=== PATIENT | female | born 1995 | race Two or more races ===

== ENCOUNTER 2021-02-18 04:50 | Emergency (ER) | payer SELFPAY ==
--- NOTE | 2021-02-18 04:58 | EDM.PDOC ---
<Edi Roman - Last Filed: 02/18/21 07:11> ED HPI GENERAL MEDICAL PROBLEM - General Stated Complaint: FEVER, CHILLS, VOMITING Time Seen by Provider: 02/18/21 04:53 - Related Data Allergies Allergy/AdvReac Type Severity Reaction Status Date / Time Penicillins Allergy Anaphylactic Verified 02/18/21 05:26 Shock Home Meds: Home Meds Ondansetron [Zofran ODT] 4 mg PO Q6H PRN #10 tab.dis 02/18/21 [Rx] Departure - Departure Time of Disposition: 07:11 Disposition: Home, Self-Care 01 Condition: Good Clinical Impression: COVID-19, Nausea and vomiting - Discharge Information Prescriptions: Ondansetron [Zofran ODT] 4 mg PO Q6H PRN #10 tab.dis PRN Reason: Nausea/Vomiting Instructions: COVID-19 Frequently Asked Questions, COVID-19 Vaccine Information, 10 Things You Can Do to Manage Your COVID-19 Symptoms at Home - [facility] (12/24/2019), COVID-19: Quarantine vs. Isolation - [facility] (06/10/2020), COVID-19: What to Do if You Are Sick - [facility] (06/24/2020) Referrals: PCP,None [Primary Care Provider] - Forms: ED Department Discharge Additional Instructions: [facility] - Primary Care [address] [place] [id number] [place] [address] The following information is given to patients seen in the emergency department who are being discharged to home. This information is to outline your options for follow-up care. We provide all patients seen in our emergency department with a follow-up referral. The need for follow-up, as well as the timing and circumstances, are variable depending upon the specifics of your emergency department visit. If you don't have a primary care physician on staff, we will provide you with a referral. We always advise you to contact your personal physician following an emergency department visit to inform them of the circumstance of the visit and for follow-up with them and/or the need for any referrals to a consulting specialist. The emergency department will also refer you to a specialist when appropriate. This referral assures that you have the opportunity for follow-up care with a specialist. All of these measure are taken in an effort to provide you with optimal care, which includes your follow-up. Under all circumstances we always encourage you to contact your private physician who remains a resource for coordinating your care. When calling for follow-up care, please make the office aware that this follow-up is from your recent emergency room visit. If for any reason you are refused follow-up, please contact the [facility] Emergency Department at and asked to speak to the emergency department charge nurse. <Denzel Aguilar - Last Filed: 02/18/21 18:47> ED HPI GENERAL MEDICAL PROBLEM - History of Present Illness INITIAL COMMENTS - FREE TEXT/NARRATIVE: History of present illness: [] The patient says she has body aches severe headache burning in her chest cough shortness of breath and fever. She is vomiting everything that she tries to take. Her cousins admitted here with COVID-19. She did a home test that showed positive. She is a non-smoker and not diabetic. She does not have asthma or lung disease. At age 25 she does not have any risk for severe COVID-19 disease but of course no one can be sure that they want succumbed to severe illness or with this disease. She is quite concerned about that. Review of systems: As per history of present illness and below otherwise all systems reviewed and negative. Past medical history: As per history of present illness and as reviewed below otherwise noncontributory. Surgical history: As per history of present illness and as reviewed below otherwise nonco ntributory. Social history: No reported history of drug or alcohol abuse. Family history: As per history of present illness and as reviewed below otherwise noncontributory. Physical exam: Constitutional - well developed, well-nourished and in no acute distress HEENT - normocephalic, no evidence of trauma - external nose and mouth normal - no mass in neck and no JVD - mucosae moist EYES - full EOM, PERRL, no icterus - no evidence of inflammation, injection, or drainage Respiratory - no respiratory distress, equal bilateral expansion, lungs clear to auscultation and no abnormal lung sounds Cardiovascular - Regular Rhythm with S1 and S2 appreciated and no murmur, gallop or rub. GI - abdomen soft without distension or organomegaly - normal bowel sounds - no guard or rebound Musculoskeletal no gross deformity of long bones or joints - no tenderness, swelling or edema Neurologic - Alert and oriented times four - CN II-XII grossly intact - motor sensory and coordination symmetrically normal Psychiatric - appropriate mood and affect with normal thought content Hematologic - No petechiae or purpura - mucosa appropriate color and sclera not pale - normal nail bed color and refill Integument - no rash or evidence of trauma - normal turgor Diagnostics: [] Therapeutics: [] Impression: [] Plan: [] Definitive disposition and diagnosis as appropriate pending reevaluation and review of above. back, generalized Pain Score (Numeric/FACES): 9 ED ROS GENERAL - Review of Systems Review Of Systems: Comprehensive ROS is negative, except as noted in HPI. ED EXAM, GENERAL - Physical Exam Exam: See Below Free Text/Narrative:: My physical exam is in the HPI Course - Vital Signs Last Recorded V/S: Last Vital Signs Temp 36.1 C 02/18/21 07:24 Pulse 96 02/18/21 07:24 Resp 22 H 02/18/21 07:24 BP 116/72 02/18/21 07:24 Pulse Ox 97 02/18/21 07:24 - Orders/Labs/Meds Orders: Active Orders 24 hr Category Date Time Status Saline Lock Insert [OM.PC] Stat Oth 02/18/21 05:47 Ordered Labs: Laboratory Tests 02/18/21 02/18/21 02/18/21 Range/Units 06:00 06:00 06:00 WBC 5.37 (4.0-11.0) K/uL RBC 4.90 (4.30-5.90) M/uL Hgb 11.3 L (12.0-16.0) g/dL Hct 35.9 L (36.0-46.0) % MCV 73.3 L (80.0-98.0) fL MCH 23.1 L (27.0-32.0) pg MCHC 31.5 (31.0-37.0) g/dL RDW Std Deviation 43.6 (28.0-62.0) fl RDW Coeff of Lam 16 H (11.0-15.0) % Plt Count 248 (150-400) K/uL MPV 10.40 (7.40-12.00) fL Neut % (Auto) 79.3 (48.0-80.0) % Lymph % (Auto) 14.2 L (16.0-40.0) % [place] % (Auto) 6.3 (0.0-15.0) % Eos % (Auto) 0.0 (0.0-7.0) % Baso % (Auto) 0.2 (0.0-1.5) % Neut # (Auto) 4.3 (1.4-5.7) K/uL Lymph # (Auto) 0.8 (0.6-2.4) K/uL [place] # (Auto) 0.3 (0.0-0.8) K/uL Eos # (Auto) 0.0 (0.0-0.7) K/uL Baso # (Auto) 0.0 (0.0-0.1) K/uL Nucleated RBC % 0.0 /100WBC Nucleated RBCs # 0 K/uL Sodium 138 (136-145) mmol/L Potassium 3.7 (3.5-5.1) mmol/L Chloride 102 (98-107) mmol/L Carbon Dioxide 25.8 (21.0-32.0) mmol/L BUN 8 (7.0-18.0) mg/dL Creatinine 0.8 (0.6-1.0) mg/dL Est Cr Clr Drug Dosing 114.23 mL/min Estimated GFR (MDRD) > 60.0 ml/min Glucose 102 (74-106) mg/dL Calcium 8.0 L (8.5-10.1) mg/dL Total Bilirubin 0.3 (0.2-1.0) mg/dL AST 19 (15-37) IU/L ALT 32 (14-63) IU/L Alkaline Phosphatase 111 (46-116) U/L Total Protein 6.6 (6.4-8.2) g/dL Albumin 3.4 (3.4-5.0) g/dL Globulin 3.2 (2.6-4.0) g/dL Albumin/Globulin Ratio 1.1 (0.9-1.6) SARS-CoV-2 RNA (MILAGRO) POSITIVE H (NEGATIVE) Meds: Medications Discontinued Medications Generic Name Dose Route Start Last Admin Trade Name Freq PRN Reason Stop Dose Admin Sodium Chloride 1,000 mls @ 100 mls/hr 02/18/21 05:45 02/18/21 05:52 Normal Saline IV 100 mls/hr ASDIRECTED ROSIBEL Administration Ketorolac Tromethamine 30 mg 02/18/21 05:45 02/18/21 05:54 Ketorolac 30 Mg/Ml Sdv IM 02/18/21 05:46 Not Given ONETIME ONE Ketorolac Tromethamine 15 mg 02/18/21 05:47 02/18/21 05:52 Ketorolac 15 Mg/Ml Sdv IVPUSH 02/18/21 05:48 15 mg ONETIME ONE Administration Ondansetron HCl 4 mg 02/18/21 05:43 02/18/21 05:54 Ondansetron 4 Mg/2 Ml Sdv IVPUSH 02/18/21 05:44 Not Given ONETIME ONE Ondansetron HCl 4 mg 02/18/21 05:45 02/18/21 05:54 Ondansetron 4 Mg Tab.Dis PO 02/18/21 05:46 Not Given ONETIME ONE Ondansetron HCl 4 mg 02/18/21 05:48 02/18/21 05:53 Ondansetron 4 Mg/2 Ml Sdv IVPUSH 02/18/21 05:49 4 mg ONETIME ONE Administration Sodium Chloride 10 ml 02/18/21 05:43 Sodium Chloride 0.9% 10 Ml Syringe FLUSH ASDIRECTED PRN Keep Vein Open Sodium Chloride 2.5 ml 02/18/21 05:43 Sodium Chloride 0.9% 2.5 Ml Syringe FLUSH ASDIRECTED PRN Keep Vein Open Sodium Chloride 10 ml 02/18/21 05:47 02/18/21 05:53 Sodium Chloride 0.9% 10 Ml Syringe FLUSH 10 ml ASDIRECTED PRN Administration Keep Vein Open Sodium Chloride 2.5 ml 02/18/21 05:47 02/18/21 05:53 Sodium Chloride 0.9% 2.5 Ml Syringe FLUSH 2.5 ml ASDIRECTED PRN Administration Keep Vein Open Departure - Departure Condition: Good Sepsis Event Note (ED) - Focused Exam Vital Signs: Vital Signs Temp Pulse Resp BP Pulse Ox 02/18/21 07:24 36.1 C 96 22 H 116/72 97 02/18/21 06:58 80 18 109/56 L 96 - My Orders Last 24 Hours: My Active Orders 02/18/21 05:47 Saline Lock Insert [OM.PC] Stat - Assessment/Plan Last 24 Hours: My Active Orders 02/18/21 05:47 Saline Lock Insert [OM.PC] Stat
[2021-02-18] MEDS ORDERED: Sodium Chloride 0.9% 10 ML Syringe FLUSH PRN ×2 (05:43→05:47)
[2021-02-18] MEDS ORDERED: Ondansetron 4 MG/2 ML SDV IVPUSH ONE ×2 (05:43→05:48)
[2021-02-18] MEDS ORDERED: Sodium Chloride 0.9% 2.5 ML Syringe FLUSH PRN ×2 (05:43→05:47)
[2021-02-18] MEDS ORDERED: Sodium Chloride 0.9% 1,000 ML IV SCH (05:45)
[2021-02-18] MEDS ORDERED: Ketorolac 30 MG/ML SDV IM ONE (05:45)
[2021-02-18] MEDS ORDERED: Ondansetron 4 MG Tab.DIS PO ONE (05:45)
[2021-02-18] MEDS ORDERED: Ketorolac 15 MG/ML SDV IVPUSH ONE (05:47)
[2021-02-18 06:40] LABS: BLOOD UREA NITROGEN,BUN 8 mg/dL (7.0-18.0); CARBON DIOXIDE,CO2 25.8 mmol/L (21.0-32.0); CHLORIDE,CL 102 mmol/L (98-107); GLUCOSE RANDOM 102 mg/dL (74-106); POTASSIUM,K 3.7 mmol/L (3.5-5.1); SODIUM,NA 138 mmol/L (136-145)
== END 2021-02-18 07:25 | disposition home or self-care (01) ==
LOC: MW.ED 04:50
DX: U07.1 COVID-19 (principal); Z88.0 Allergy status to penicillin
CPT/HCPCS: 36415; 80053; 85025; 87635; 96374; 96375; 99284; J1885; J2405; J7030; U0002

== ENCOUNTER 2021-02-20 23:32 | Emergency (ER) | payer SELFPAY ==
[2021-02-21] MEDS ORDERED: Metoclopramide 10 MG/2 ML SDV IVPUSH ONE (00:04)
[2021-02-21] MEDS ORDERED: Sodium Chloride 0.9% 1,000 ML IV ONE (00:04)
--- NOTE | 2021-02-21 00:08 | EDM.PDOC ---
ED HPI GENERAL MEDICAL PROBLEM - General Chief Complaint: Gastrointestinal Problem Stated Complaint: COVID COMPLICATIONS, NAUSEA, VOMITTING Time Seen by Provider: 02/20/21 23:34 Source of Information: Reports: Patient History Limitations: Reports: No Limitations - History of Present Illness INITIAL COMMENTS - FREE TEXT/NARRATIVE: Patient is a 25-year-old female who presents today for worsening Covid symptoms. Patient was seen here 2 days ago and was diagnosed ago at that time. Oxygen was well and she was sent home. She went to [place] yesterday night around 7 PM and had an extensive work-up with CT chest abdomen pelvis T and L- spine's multiple labs that were all within normal limits. She was sent home however she still was not feeling well and her mother is currently ICU her mother instructed her to come to the hospital because they felt that there may be something wrong with a nurse. Based off the work-up that they did there there was very extensive they did not find any concerning findings. Patient vital signs are stable here her oxygen level is 98% on room air. But she still complains that she just feels very tired and weak. She was explained that she has Covid and the symptoms could be related to them. Abdomen Pain Score (Numeric/FACES): 6 - Related Data Allergies Allergy/AdvReac Type Severity Reaction Status Date / Time Penicillins Allergy Anaphylactic Verified 02/20/21 23:52 Shock Home Meds: Home Meds Ondansetron [Zofran ODT] 4 mg PO Q6H PRN #10 tab.dis 02/18/21 [Rx] Past Medical History - Past Health History Medical/Surgical History: Denies Medical/Surgical History HEENT History: Reports: None Cardiovascular History: Reports: None Respiratory History: Reports: None Gastrointestinal History: Reports: None Genitourinary History: Reports: None TEST ENGINE OPERATOR History: Reports: None Musculoskeletal History: Reports: None Neurological History: Reports: None Psychiatric History: Reports: None Endocrine/Metabolic History: Reports: None Hematologic History: Reports: None Immunologic History: Reports: None Oncologic (Cancer) History: Reports: None Dermatologic History: Reports: None - Infectious Disease History Infectious Disease History: Reports: None - Past Surgical History Head Surgeries/Procedures: Reports: None Social & Family History - Family History Family Medical History: No Pertinent Family History - Tobacco Use Tobacco Use Status *Q: Never Tobacco User Second Hand Smoke Exposure: No - Caffeine Use Caffeine Use: Reports: None - Recreational Drug Use Recreational Drug Use: No ED ROS GENERAL - Review of Systems Review Of Systems: See Below Constitutional: Reports: Fever, Chills, Malaise HEENT: Reports: No Symptoms Respiratory: Reports: Cough Cardiovascular: Reports: No Symptoms Endocrine: Reports: No Symptoms GI/Abdominal: Reports: No Symptoms : Reports: No Symptoms Musculoskeletal: Reports: No Symptoms Skin: Reports: No Symptoms Neurological: Reports: No Symptoms Psychiatric: Reports: No Symptoms Hematologic/Lymphatic: Reports: No Symptoms Immunologic: Reports: No Symptoms ED EXAM, GENERAL - Physical Exam Exam: See Below Exam Limited By: No Limitations General Appearance: Alert, WD/WN, No Apparent Distress Eye Exam: Bilateral Eye: EOMI, PERRL Head: Atraumatic, Normocephalic Neck: Normal Inspection Respiratory/Chest: No Respiratory Distress, Lungs Clear, Normal Breath Sounds Cardiovascular: Normal Peripheral Pulses, Regular Rate, Rhythm GI/Abdominal: Normal Bowel Sounds, Soft, Non-Tender Extremities: Normal Inspection, Normal Range of Motion Neurological: Alert, Oriented, CN II-XII Intact, Normal Cognition, Normal Gait Course - Vital Signs Last Recorded V/S: Last Vital Signs Temp 97.7 F 02/20/21 23:42 Pulse 86 02/20/21 23:42 Resp 18 02/20/21 23:42 BP 127/73 02/20/21 23:42 Pulse Ox 97 02/20/21 23:42 - Orders/Labs/Meds Orders: Active Orders 24 hr Category Date Time Status Sodium Chloride 0.9% [Normal Saline] 1,000 ml Med 02/21/21 00:04 Active IV .Bolus Medication Orders Sodium Chloride (Normal Saline) 1,000 mls @ 1,000 mls/hr IV .Bolus ONE Stop: 02/21/21 01:03 Last Admin: 02/21/21 00:15 Dose: 1,000 mls/hr Documented by: COREY Labs: Laboratory Tests 02/20/21 02/20/21 02/21/21 Range/Units 23:55 23:55 00:04 WBC 6.08 (4.0-11.0) K/uL RBC 5.20 (4.30-5.90) M/uL Hgb 11.8 L (12.0-16.0) g/dL Hct 37.6 (36.0-46.0) % MCV 72.3 L (80.0-98.0) fL MCH 22.7 L (27.0-32.0) pg MCHC 31.4 (31.0-37.0) g/dL RDW Std Deviation 42.1 (28.0-62.0) fl RDW Coeff of Lam 16 H (11.0-15.0) % Plt Count 270 (150-400) K/uL MPV 10.30 (7.40-12.00) fL Neut % (Auto) 88.2 H (48.0-80.0) % Lymph % (Auto) 8.6 L (16.0-40.0) % [place] % (Auto) 3.0 (0.0-15.0) % Eos % (Auto) 0.0 (0.0-7.0) % Baso % (Auto) 0.2 (0.0-1.5) % Neut # (Auto) 5.4 (1.4-5.7) K/uL Lymph # (Auto) 0.5 L (0.6-2.4) K/uL [place] # (Auto) 0.2 (0.0-0.8) K/uL Eos # (Auto) 0.0 (0.0-0.7) K/uL Baso # (Auto) 0.0 (0.0-0.1) K/uL Nucleated RBC % 0.0 /100WBC Nucleated RBCs # 0 K/uL Sodium 138 (136-145) mmol/L Potassium 4.4 (3.5-5.1) mmol/L Chloride 101 (98-107) mmol/L Carbon Dioxide 25.0 (21.0-32.0) mmol/L BUN 16 (7.0-18.0) mg/dL Creatinine 0.9 (0.6-1.0) mg/dL Est Cr Clr Drug Dosing TNP Estimated GFR (MDRD) > 60.0 ml/min Glucose 156 H (74-106) mg/dL Calcium 8.2 L (8.5-10.1) mg/dL Total Bilirubin 0.5 (0.2-1.0) mg/dL AST 55 H (15-37) IU/L ALT 79 H (14-63) IU/L Alkaline Phosphatase 140 H (46-116) U/L Total Protein 7.3 (6.4-8.2) g/dL Albumin 3.6 (3.4-5.0) g/dL Globulin 3.7 (2.6-4.0) g/dL Albumin/Globulin Ratio 1.0 (0.9-1.6) Urine Color YELLOW Urine Appearance SLT CLOUDY Urine pH 6.5 (5.0-8.0) Ur Specific [place] 1.010 (1.001-1.035) Urine Protein TRACE H (NEGATIVE) mg/dL Urine Glucose (UA) NEGATIVE (NEGATIVE) mg/dL Urine Ketones 40 H (NEGATIVE) mg/dL Urine Occult Blood NEGATIVE (NEGATIVE) Urine Nitrite NEGATIVE (NEGATIVE) Urine Bilirubin NEGATIVE (NEGATIVE) Urine Urobilinogen 2.0 H (<2.0) EU/dL Ur Leukocyte Esterase NEGATIVE (NEGATIVE) Urine RBC 0-2 (0-2/HPF) Urine WBC 0-2 (0-5/HPF) Ur Epithelial Cells FEW (NONE-FEW) Urine Bacteria FEW (NEGATIVE) Meds: Medications Generic Name Dose Route Start Last Admin Trade Name Freq PRN Reason Stop Dose Admin Sodium Chloride 1,000 mls @ 1,000 mls/hr 02/21/21 00:04 02/21/21 00:15 Normal Saline IV 02/21/21 01:03 1,000 mls/hr .Bolus ONE Administration Discontinued Medications Generic Name Dose Route Start Last Admin Trade Name Freq PRN Reason Stop Dose Admin Ketorolac Tromethamine 30 mg 02/21/21 00:23 02/21/21 00:31 Ketorolac 30 Mg/Ml Sdv IVPUSH 02/21/21 00:24 30 mg ONETIME ONE Administration Metoclopramide HCl 10 mg 02/21/21 00:04 02/21/21 00:15 Metoclopramide 10 Mg/2 Ml Sdv IVPUSH 02/21/21 00:05 10 mg ONETIME ONE Administration - Re-Assessments/Exams Free Text/Narrative Re-Assessment/Exam: 02/21/21 00:50 Patient work-up complete. Patient still satting well will be discharged home. 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 Departure - Departure Time of Disposition: 00:51 Disposition: Home, Self-Care 01 Condition: Good Clinical Impression: COVID - Discharge Information *PRESCRIPTION DRUG MONITORING PROGRAM REVIEWED*: Not Applicable *COPY OF PRESCRIPTION DRUG MONITORING REPORT IN PATIENT OTTO: Not Applicable Instructions: 10 Things You Can Do to Manage Your COVID-19 Symptoms at Home - [facility] (12/24/2019) Referrals: PCP,None [Primary Care Provider] - Forms: ED Department Discharge Additional Instructions: The following information is given to patients seen in the emergency department who are being discharged to home. This information is to outline your options for follow-up care. We provide all patients seen in our emergency department with a follow-up referral. The need for follow-up, as well as the timing and circumstances, are variable depending upon the specifics of your emergency department visit. If you don't have a primary care physician on staff, we will provide you with a referral. We always advise you to contact your personal physician following an emergency department visit to inform them of the circumstance of the visit and for follow-up with them and/or the need for any referrals to a consulting specialist. The emergency department will also refer you to a specialist when appropriate. This referral assures that you have the opportunity for follow-up care with a specialist. All of these measure are taken in an effort to provide you with optimal care, which includes your follow-up. Under all circumstances we always encourage you to contact your private physician who remains a resource for coordinating your care. When calling for follow-up care, please make the office aware that this follow-up is from your recent emergency room visit. If for any reason you are refused follow-up, please contact the [facility] Emergency Department at and asked to speak to the emergency department charge nurse. Please follow up with your primary care physician. If you do not have a primary care physician, see below: [facility] Primary [facility] [address] [place] [id number] [facility] [address] [place] [address] You were seen today for worsening Covid symptoms. You are seen in hospital for this and had extensive work-up that we believe was normal. You will not feel well for the next few days due to your Covid diagnosis. In the meantime we do recommend that you try to stay hydrated as best she can take a small amounts of juice or water and some crackers. Your outside hospital gave you some medications please pick this up from the pharmacy. Please try to get some rest. If you have any other concerning signs or symptoms please return to the ED. Sepsis Event Note (ED) - Focused Exam Vital Signs: Vital Signs Temp Pulse Resp BP Pulse Ox 02/20/21 23:42 97.7 F 86 18 127/73 97 - My Orders Last 24 Hours: My Active Orders 02/21/21 00:04 Sodium Chloride 0.9% [Normal Saline] 1,000 ml IV .Bolus - Assessment/Plan Last 24 Hours: My Active Orders 02/21/21 00:04 Sodium Chloride 0.9% [Normal Saline] 1,000 ml IV .Bolus Plan: Patient is a 25-year-old female who was diagnosed with Covid presents today for worsening symptoms. This is patient's third visit to an ER in the past 3 days. She had he left another ER about 5 hours ago where they did an sense of work-up for this patient CT chest abdomen pelvis T and L-spine and labs. Does not seem to get a UA we can do a UA here to see if patient has a UTI she does have some right flank pain. Patient otherwise satting well on room air. Patient was instructed that the symptoms are likely related to Covid.
[2021-02-21 00:21] LABS: BLOOD UREA NITROGEN,BUN 16 mg/dL (7.0-18.0); CHLORIDE,CL 101 mmol/L (98-107); GLUCOSE RANDOM 156 mg/dL (74-106); POTASSIUM,K 4.4 mmol/L (3.5-5.1); SODIUM,NA 138 mmol/L (136-145)
[2021-02-21] MEDS ORDERED: Ketorolac 30 MG/ML SDV IVPUSH ONE (00:23)
--- NOTE | 2021-02-21 00:29 | CR ---
INDICATION: COVID-19 worsening shortness of breath TECHNIQUE: Chest radiograph 1 view COMPARISON: None FINDINGS: The sensitivity and specificity of the exam are moderately limited by the patient`s body habitus. Mediastinum: The mediastinum is normal in appearance. The heart silhouette is normal in size and morphology. Lung: Mild patchy airspace infiltrates are present in the lung bases bilaterally. No sign of pleural effusion seen. No pneumothorax is identified. Bone and Soft tissue: Unremarkable for age. IMPRESSION: 1. Mild patchy airspace infiltrates are present in the lung bases bilaterally. Dictated by Hermann Larose MD @ 02/21/2021 12:27:02 AM Dictated by: Hermann Larose MD @ 02/21/2021 00:27:05 (Electronically Signed)
== END 2021-02-21 01:15 | disposition home or self-care (01) ==
LOC: MW.ED 23:32
DX: U07.1 COVID-19 (principal); Z88.0 Allergy status to penicillin
CPT/HCPCS: 36415; 71045; 80053; 81001; 85025; 96374; 96375; 99285; J1885; J2765; J7030

== ENCOUNTER 2021-03-22 19:22 | Emergency (ER) | payer MEDICAID ==
--- NOTE | 2021-03-22 20:18 | EDM.PDOC ---
ED HPI GENERAL MEDICAL PROBLEM - General Chief Complaint: Back Pain or Injury Stated Complaint: BACK PAIN Time Seen by Provider: 03/22/21 20:15 Source of Information: Reports: Patient History Limitations: Reports: No Limitations - History of Present Illness INITIAL COMMENTS - FREE TEXT/NARRATIVE: HISTORY AND PHYSICAL: History of present illness: Patient is a 25-year-old female who presents to the emergency room with complaints of right back pain and right distal rib pain x1 week. Pain is nonspecific. Nothing makes the pain better or worse. She states she did have COVID approximately 1 month ago. During that time she did have somewhat pain in this area and was given a prescription for Mobic. She states Mobic, Tylenol and ibuprofen have not been helping with her discomfort. Patient denies any fever, chills, headache, change in vision, syncope or near syncope. Denies any midsternal chest pain, back pain, shortness of breath or cough. Denies any abdominal pain, nausea, vomiting, diarrhea, constipation or dysuria. Has not noted any blood in urine or stool. Patient has been eating and drinking appropriately. No recent travel or sick contacts. Review of systems: As per history of present illness and below otherwise all systems reviewed and negative. Past medical history: As per history of present illness and as reviewed below otherwise noncontributory. Surgical history: As per history of present illness and as reviewed below otherwise noncontributory. Social history: See social history for further information Family history: As per history of present illness and as reviewed below otherwise noncontributory. Physical exam: General: Well developed and well nourished. Alert and orientated x 3. Nontoxic in appearance and in no acute distress. Vital signs are stable and have been reviewed by me. Nursing notes were reviewed. HEENT: Atraumatic, normocephalic, pupils equal and reactive bilaterally, negative for conjunctival pallor or scleral icterus, mucous membranes moist, TMs normal bilaterally, throat clear, neck supple, nontender, trachea midline. No drooling or trismus noted. No meningeal signs. No hot potato voice noted. Lungs: Clear to auscultation bilaterally. No wheezes, rales, or rhonchi. Chest tender to touch of the right lower distal/lateral rib area Normal work of breathing, no accessory muscles used. Heart: S1S2, regular rate and rhythm without overt murmur, gallops, or rubs. No JVD. No peripheral edema Abdomen: Soft, nondistended, nontender. Normoactive bowel sounds. Negative for masses or costovertebral tenderness. C-spine/Back: No pinpoint vertebral tenderness upon palpation. No crepitus, step-offs or obvious deformities. Patient is ambulatory into the emergency room without difficulty or deficit. Able to rock back on heels and walk on toes. Denies any urinary or fecal incontinence. Denies any numbness, tingling or saddle paresthesia. No concerns of serious infection, fracture or cord compression, or cauda equina syndrome. Deep tendon reflexes brisk bilaterally. Skin: Intact, warm, dry. No lesions or rashes noted. Hematologic: No petechiae or purpra. Mucosa appropriate color and normal nail bed color and refill. Extremities: Atraumatic, moves all extremities per self without difficulty or deficits, negative for cords or calf pain. Neurovascular unremarkable. Neuro: Awake, alert, oriented. Cranial nerves II through XII unremarkable. Cerebellum unremarkable. Motor and sensory unremarkable throughout. Exam nonfocal. Psychiatric: Mood and affect are appropriate. Normal thought process. Answering questions appropriately. Please note that the patient was seen and evaluated during the 2019 SARS-CoV-2 novel coronavirus pandemic period. Community viral transmission is ongoing at time of this encounter and the emergency department is operating under pandemic response procedures. Medical Decision Making: Patient states she has had her gallbladder removed approximately 4 years ago. She does not have a noted cough. Her rib region is tender to touch. We will do basic lab work and a chest x-ray at this time. Diagnostics are unremarkable. Due to her having tried Tylenol and ibuprofen/Mobic [id number] I will give her a limited amount of tramadol. I have talked with the patient about today's findings, in addition to providing specific details for plan of care. Reassessment at the time of disposition demonstrates that the patient is in no acute distress. The patient is stable for discharge, counseling was provided and we discussed in great detail signs and symptoms that would prompt them to return to the Emergency Department. Medication, follow up and supportive care measures were reviewed and discussed. Voices understanding and is agreeable to plan of care. Denies any further questions or concerns at this time. Diagnostics: CBC, CMP, UA, chest x-ray Therapeutics: Tramadol Prescription: Tramadol Impression: Rib pain Plan: 1. You were evaluated today on an emergent basis. Your lab work and chest x-ray are normal. 2. You can alternate Tylenol and ibuprofen as needed for pain and fever management. 3. We encourage you to follow up with your primary care provider and/or recommended specialist in the next few days for re-evaluation and further care/management. 4. If your symptoms should worsen, new symptoms develop or any of the signs and symptoms we discussed should arise please return to the emergency room or call 911 (if needed). Definitive disposition and diagnosis as appropriate pending reevaluation and review of above. - Related Data Allergies Allergy/AdvReac Type Severity Reaction Status Date / Time Penicillins Allergy Anaphylactic Verified 02/20/21 23:52 Shock Home Meds: Home Meds Meloxicam [Mobic] 1 tab PO TID PRN 03/22/21 [History] traMADol [Ultram] 50 mg PO Q4H PRN #15 tab 03/22/21 [Rx] Past Medical History - Past Health History Medical/Surgical History: Denies Medical/Surgical History HEENT History: Reports: None Cardiovascular History: Reports: None Respiratory History: Reports: None Gastrointestinal History: Reports: None Genitourinary History: Reports: None MATERIAL MANAGER History: Reports: None Musculoskeletal History: Reports: None Neurological History: Reports: None Psychiatric History: Reports: None Endocrine/Metabolic History: Reports: None Hematologic History: Reports: None Immunologic History: Reports: None Oncologic (Cancer) History: Reports: None Dermatologic History: Reports: None - Infectious Disease History Infectious Disease History: Reports: None - Past Surgical History Head Surgeries/Procedures: Reports: None Social & Family History - Family History Family Medical History: No Pertinent Family History - Caffeine Use Caffeine Use: Reports: None ED ROS GENERAL - Review of Systems Review Of Systems: Comprehensive ROS is negative, except as noted in HPI. ED EXAM,LOWER BACK PAIN/INJURY - Physical Exam Exam: See Below (See dictation) Course - Vital Signs Last Recorded V/S: Last Vital Signs Temp 97.6 F 03/22/21 20:15 Pulse 54 L 03/22/21 20:15 Resp 15 03/22/21 20:15 BP 112/63 03/22/21 20:15 Pulse Ox 99 03/22/21 20:15 - Orders/Labs/Meds Orders: Active Orders 24 hr Category Date Time Status CULTURE URINE [MREF] Stat Lab 03/22/21 20:30 Received Labs: Laboratory Tests 03/22/21 03/22/21 03/22/21 Range/Units 20:25 20:25 20:30 WBC 7.93 (4.0-11.0) K/uL RBC 4.86 (4.30-5.90) M/uL Hgb 11.1 L (12.0-16.0) g/dL Hct 36.0 (36.0-46.0) % MCV 74.1 L (80.0-98.0) fL MCH 22.8 L (27.0-32.0) pg MCHC 30.8 L (31.0-37.0) g/dL RDW Std Deviation 45.2 (28.0-62.0) fl RDW Coeff of Lam 17 H (11.0-15.0) % Plt Count 302 (150-400) K/uL MPV 10.00 (7.40-12.00) fL Neut % (Auto) 61.2 (48.0-80.0) % Lymph % (Auto) 31.0 (16.0-40.0) % Roane % (Auto) 7.7 (0.0-15.0) % Eos % (Auto) 0.0 (0.0-7.0) % Baso % (Auto) 0.1 (0.0-1.5) % Neut # (Auto) 4.9 (1.4-5.7) K/uL Lymph # (Auto) 2.5 H (0.6-2.4) K/uL Roane # (Auto) 0.6 (0.0-0.8) K/uL Eos # (Auto) 0.0 (0.0-0.7) K/uL Baso # (Auto) 0.0 (0.0-0.1) K/uL Nucleated RBC % 0.0 /100WBC Nucleated RBCs # 0 K/uL Sodium 145 (136-145) mmol/L Potassium 4.0 (3.5-5.1) mmol/L Chloride 108 H (98-107) mmol/L Carbon Dioxide 29.3 (21.0-32.0) mmol/L BUN 14 (7.0-18.0) mg/dL Creatinine 0.8 (0.6-1.0) mg/dL Est Cr Clr Drug Dosing 95.05 mL/min Estimated GFR (MDRD) > 60.0 ml/min Glucose 95 (74-106) mg/dL Calcium 8.4 L (8.5-10.1) mg/dL Total Bilirubin 0.6 (0.2-1.0) mg/dL AST 12 L (15-37) IU/L ALT 27 (14-63) IU/L Alkaline Phosphatase 109 (46-116) U/L Total Protein 6.7 (6.4-8.2) g/dL Albumin 3.6 (3.4-5.0) g/dL Globulin 3.1 (2.6-4.0) g/dL Albumin/Globulin Ratio 1.2 (0.9-1.6) Urine Color YELLOW Urine Appearance SLT CLOUDY Urine pH 6.5 (5.0-8.0) Ur Specific Bingham 1.015 (1.001-1.035) Urine Protein NEGATIVE (NEGATIVE) mg/dL Urine Glucose (UA) NEGATIVE (NEGATIVE) mg/dL Urine Ketones NEGATIVE (NEGATIVE) mg/dL Urine Occult Blood NEGATIVE (NEGATIVE) Urine Nitrite NEGATIVE (NEGATIVE) Urine Bilirubin NEGATIVE (NEGATIVE) Urine Urobilinogen 1.0 (<2.0) EU/dL Ur Leukocyte Esterase SMALL H (NEGATIVE) Urine RBC 0-2 (0-2/HPF) Urine WBC 0-4 (0-5/HPF) Ur Epithelial Cells FEW (NONE-FEW) Amorphous Sediment LIGHT (NEGATIVE) Urine Bacteria 1+ H (NEGATIVE) Urine HCG, Qual (NEGATIVE) 03/22/21 Range/Units 20:30 WBC (4.0-11.0) K/uL RBC (4.30-5.90) M/uL Hgb (12.0-16.0) g/dL Hct (36.0-46.0) % MCV (80.0-98.0) fL MCH (27.0-32.0) pg MCHC (31.0-37.0) g/dL RDW Std Deviation (28.0-62.0) fl RDW Coeff of Lam (11.0-15.0) % Plt Count (150-400) K/uL MPV (7.40-12.00) fL Neut % (Auto) (48.0-80.0) % Lymph % (Auto) (16.0-40.0) % Roane % (Auto) (0.0-15.0) % Eos % (Auto) (0.0-7.0) % Baso % (Auto) (0.0-1.5) % Neut # (Auto) (1.4-5.7) K/uL Lymph # (Auto) (0.6-2.4) K/uL Roane # (Auto) (0.0-0.8) K/uL Eos # (Auto) (0.0-0.7) K/uL Baso # (Auto) (0.0-0.1) K/uL Nucleated RBC % /100WBC Nucleated RBCs # K/uL Sodium (136-145) mmol/L Potassium (3.5-5.1) mmol/L Chloride (98-107) mmol/L Carbon Dioxide (21.0-32.0) mmol/L BUN (7.0-18.0) mg/dL Creatinine (0.6-1.0) mg/dL Est Cr Clr Drug Dosing mL/min Estimated GFR (MDRD) ml/min Glucose (74-106) mg/dL Calcium (8.5-10.1) mg/dL Total Bilirubin (0.2-1.0) mg/dL AST (15-37) IU/L ALT (14-63) IU/L Alkaline Phosphatase (46-116) U/L Total Protein (6.4-8.2) g/dL Albumin (3.4-5.0) g/dL Globulin (2.6-4.0) g/dL Albumin/Globulin Ratio (0.9-1.6) Urine Color Urine Appearance Urine pH (5.0-8.0) Ur Specific Bingham (1.001-1.035) Urine Protein (NEGATIVE) mg/dL Urine Glucose (UA) (NEGATIVE) mg/dL Urine Ketones (NEGATIVE) mg/dL Urine Occult Blood (NEGATIVE) Urine Nitrite (NEGATIVE) Urine Bilirubin (NEGATIVE) Urine Urobilinogen (<2.0) EU/dL Ur Leukocyte Esterase (NEGATIVE) Urine RBC (0-2/HPF) Urine WBC (0-5/HPF) Ur Epithelial Cells (NONE-FEW) Amorphous Sediment (NEGATIVE) Urine Bacteria (NEGATIVE) Urine HCG, Qual NEGATIVE (NEGATIVE) Meds: Medications Discontinued Medications Generic Name Dose Route Start Last Admin Trade Name Alexander PRN Reason Stop Dose Admin Tramadol HCl 50 mg 03/22/21 21:28 Tramadol 50 Mg Tab PO 03/22/21 21:29 ONETIME ONE Departure - Departure Time of Disposition: 21:33 Disposition: Home, Self-Care 01 Clinical Impression: Rib pain on right side - Discharge Information Prescriptions: traMADol [Ultram] 50 mg PO Q4H PRN #15 tab PRN Reason: Pain Instructions: Muscle Strain, [id number] Referrals: PCP,Not In Area [Primary Care Provider] - Forms: ED Department Discharge Additional Instructions: The following information is given to patients seen in the emergency department who are being discharged to home. This information is to outline your options for follow-up care. We provide all patients seen in our emergency department wi th a follow-up referral. The need for follow-up, as well as the timing and circumstances, are variable depending upon the specifics of your emergency department visit. If you don't have a primary care physician on staff, we will provide you with a referral. We always advise you to contact your personal physician following an emergency department visit to inform them of the circumstance of the visit and for follow-up with them and/or the need for any referrals to a consulting specialist. The emergency department will also refer you to a specialist when appropriate. This referral assures that you have the opportunity for follow-up care with a specialist. All of these measure are taken in an effort to provide you with optimal care, which includes your follow-up. Under all circumstances we always encourage you to contact your private physician who remains a resource for coordinating your care. When calling for follow-up care, please make the office aware that this follow-up is from your recent emergency room visit. If for any reason you are refused follow-up, please contact the [facility] Emergency Department at and asked to speak to the emergency department charge nurse. [facility] [address] [place] [id number] [facility] [address] [place] [address] Thank you for choosing the [facility] emergency department in [facility] for your medical needs today. It was a pleasure caring for you. Today you were seen in the emergency department for rib pain. 1. You were evaluated today on an emergent basis. Your lab work and chest x-ray are normal. 2. You can alternate Tylenol and ibuprofen as needed for pain and fever management. A prescription for pain medication has been sent to [facility]. 3. We encourage you to follow up with your primary care provider and/or recommended specialist in the next few days for re-evaluation and further care/management. 4. If your symptoms should worsen, new symptoms develop or any of the signs and symptoms we discussed should arise please return to the emergency room or call 911 (if needed). Sepsis Event Note (ED) - Focused Exam Vital Signs: Vital Signs Temp Pulse Resp BP Pulse Ox 03/22/21 20:15 97.6 F 54 L 15 112/63 99 - My Orders Last 24 Hours: My Active Orders 03/22/21 20:30 CULTURE URINE [MREF] Stat - Assessment/Plan Last 24 Hours: My Active Orders 03/22/21 20:30 CULTURE URINE [MREF] Stat
[2021-03-22 21:02] LABS: BLOOD UREA NITROGEN,BUN 14 mg/dL (7.0-18.0); CARBON DIOXIDE,CO2 29.3 mmol/L (21.0-32.0); CHLORIDE,CL 108 mmol/L (98-107); GLUCOSE RANDOM 95 mg/dL (74-106); SODIUM,NA 145 mmol/L (136-145)
--- NOTE | 2021-03-22 21:23 | CR ---
INDICATION: Shortness of breath with chest pain for 1 month. TECHNIQUE: Two view chest. COMPARISON : One-view chest 21 February 2021 FINDINGS: The lungs are clear. The heart, mediastinum and pulmonary vessels are of normal size. There is no evidence of pleural disease. IMPRESSION: Negative chest. Dictated by Matt Overton MD @ 03/22/2021 9:22:15 PM (Electronically Signed)
[2021-03-22] MEDS ORDERED: traMADol 50 MG Tab PO ONE (21:28)
== END 2021-03-22 21:45 | disposition home or self-care (01) ==
LOC: MW.ED 19:22
DX: R07.81 Pleurodynia (principal); Z88.0 Allergy status to penicillin
CPT/HCPCS: 36415; 71046; 80053; 81001; 81025; 85025; 87086; 99283; A9270

== ENCOUNTER 2021-05-17 14:29 | Emergency (ER) | payer SELFPAY ==
[2021-05-17] MEDS ORDERED: Sodium Chloride 0.9% 10 ML Syringe FLUSH PRN (17:42)
[2021-05-17] MEDS ORDERED: Sodium Chloride 0.9% 2.5 ML Syringe FLUSH PRN (17:42)
[2021-05-17] MEDS ORDERED: Ondansetron 4 MG/2 ML SDV IVPUSH ONE (18:00)
[2021-05-17] MEDS ORDERED: Meclizine 25 MG Tab PO ONE (18:00)
[2021-05-17] MEDS ORDERED: Sodium Chloride 0.9% 1,000 ML IV ONE (18:04)
--- NOTE | 2021-05-17 18:04 | EDM.PDOC ---
<Denzel Aguilar - Last Filed: 05/17/21 19:01> ED HPI GENERAL MEDICAL PROBLEM - General Chief Complaint: General Stated Complaint: HEADACHE,NAUSEA,VOMITTING Time Seen by Provider: 05/17/21 17:41 - History of Present Illness INITIAL COMMENTS - FREE TEXT/NARRATIVE: History of present illness: [] Patient has headache. She feels weak and dizzy. Its come on over a few days. She says a total of 10 days of symptoms this time. Its not like when she had Covid 6 months ago. She does have dizziness when she stands up and feels like she will pass out. She does not have diaphoresis. She does have nausea and vomiting but no diarrhea. Her appetite is gone. She has some back and abdominal pain as well. Her last menstrual period was extremely heavy. She is not seeing the specialist for this but does have a history of heavy menstrual periods and anemia. Review of systems: As per history of present illness and below otherwise all systems reviewed and negative. Past medical history: As per history of present illness and as reviewed below otherwise noncontributory. Surgical history: As per history of present illness and as reviewed below otherwise noncontributory. Social history: No reported history of drug or alcohol abuse. Family history: As per history of present illness and as reviewed below otherwise noncontributory. Physical exam: Constitutional - well developed, well-nourished and in no acute distress HEENT - normocephalic, no evidence of trauma - external nose and mouth normal - no mass in neck and no JVD - mucosae moist EYES - full EOM, PERRL, no icterus - no evidence of inflammation, injection, or drainage Respiratory - no respiratory distress, equal bilateral expansion, lungs clear to auscultation and no abnormal lung sounds Cardiovascular - Regular Rhythm with S1 and S2 appreciated and no murmur, gallop or rub. GI - abdomen soft without distension or organomegaly - normal bowel sounds - no guard or rebound Musculoskeletal no gross deformity of long bones or joints - no tenderness, swelling or edema Neurologic - Alert and oriented times four - CN II-XII grossly intact - motor sensory and coordination symmetrically normal Psychiatric - appropriate mood and affect with normal thought content Hematologic - No petechiae or purpura - mucosa appropriate color and sclera not pale - normal nail bed color and refill Integument - no rash or evidence of trauma - normal turgor Diagnostics: [] Therapeutics: [] Impression: [] Plan: [] Definitive disposition and diagnosis as appropriate pending reevaluation and review of above. Abdominal Pain Score (Numeric/FACES): 8 - Related Data Allergies Allergy/AdvReac Type Severity Reaction Status Date / Time Penicillins Allergy Anaphylactic Verified 05/17/21 16:11 Shock Home Meds: Home Meds Desvenlafaxine [Desvenlafaxine ER] 100 mg PO DAILY 05/17/21 [History] Ondansetron [Zofran ODT] 4 mg PO Q6H PRN #10 tab.dis 05/17/21 [Rx] Past Medical History - Past Health History Medical/Surgical History: Denies Medical/Surgical History HEENT History: Reports: None Cardiovascular History: Reports: None Respiratory History: Reports: None Gastrointestinal History: Reports: None Genitourinary History: Reports: None [employer] History: Reports: None Musculoskeletal History: Reports: None Neurological History: Reports: None Psychiatric History: Reports: None Endocrine/Metabolic History: Reports: None Hematologic History: Reports: None Immunologic History: Reports: None Oncologic (Cancer) History: Reports: None Dermatologic History: Reports: None - Infectious Disease History Infectious Disease History: Reports: None - Past Surgical History Head Surgeries/Procedures: Reports: None Respiratory Surgical History: Reports: None GI Surgical History: Reports: Bariatric Procedure, Cholecystectomy Female Surgical History: Reports: None Musculoskeletal Surgical History: Reports: None Social & Family History - Family History Family Medical History: No Pertinent Family History - Tobacco Use Tobacco Use Status *Q: Never Tobacco User - Caffeine Use Caffeine Use: Reports: Coffee, Soda - Alcohol Use Days Per Week of Alcohol Use: 1 Number of Drinks Per Day: 2 Total Drinks Per Week: 2 - Recreational Drug Use Recreational Drug Use: No ED ROS GENERAL - Review of Systems Review Of Systems: Comprehensive ROS is negative, except as noted in HPI. ED EXAM, GENERAL - Physical Exam Exam: See Below Free Text/Narrative:: My physical exam is in the HPI Departure - Departure Disposition: Home, Self-Care 01 Condition: Good Clinical Impression: Viral syndrome, Anemia - Discharge Information Prescriptions: Ondansetron [Zofran ODT] 4 mg PO Q6H PRN #10 tab.dis PRN Reason: Nausea/Vomiting Instructions: Anemia, Viral Illness, Adult Referrals: PCP,None [Primary Care Provider] - Forms: ED Department Discharge Additional Instructions: Drink plenty of fluids. Take iron supplement [id number]. Prescription was sent to [facility] which she can burr picker tomorrow. This is for nausea. [facility] [address] [place] [address] [facility] [address] [place] [id number] The following information is given to patients seen in the emergency department who are being discharged to home. This information is to outline your options for follow-up care. We provide all patients seen in our emergency department with a follow-up referral. The need for follow-up, as well as the timing and circumstances, are variable depending upon the specifics of your emergency department visit. If you don't have a primary care physician on staff, we will provide you with a referral. We always advise you to contact your personal physician following an emergency department visit to inform them of the circumstance of the visit and for follow-up with them and/or the need for any referrals to a consulting specialist. The emergency department will also refer you to a specialist when appropriate. This referral assures that you have the opportunity for follow-up care with a specialist. All of these measure are taken in an effort to provide you with optimal care, which includes your follow-up. Under all circumstances we always encourage you to contact your private physician who remains a resource for coordinating your care. When calling for follow-up care, please make the office aware that this follow-up is from your recent emergency room visit. If for any reason you are refused follow-up, please contact the [facility] Emergency Department at and asked to speak to the emergency department charge nurse. Sepsis Event Note (ED) - Evaluation Sepsis Screening Result: No Definite Risk <Bo Barger - Last Filed: 05/17/21 19:48> Course - Vital Signs Last Recorded V/S: Last Vital Signs Temp 98.3 F 05/17/21 16:05 Pulse 68 05/17/21 19:18 Resp 18 05/17/21 19:18 BP 125/80 05/17/21 19:18 Pulse Ox 97 05/17/21 19:18 - Orders/Labs/Meds Orders: Active Orders 24 hr Category Date Time Status Sodium Chloride 0.9% [Normal Saline] 1,000 ml Med 05/17/21 18:04 Active IV .Bolus Sodium Chloride 0.9% [Saline Flush] Med 05/17/21 17:42 Active 10 ml FLUSH ASDIRECTED PRN Sodium Chloride 0.9% [Saline Flush] Med 05/17/21 17:42 Active 2.5 ml FLUSH ASDIRECTED PRN Saline Lock Insert [OM.PC] Stat Oth 05/17/21 17:43 Ordered Medication Orders Sodium Chloride (Normal Saline) 1,000 mls @ 500 mls/hr IV .Bolus ONE Stop: 05/17/21 20:03 Last Admin: 05/17/21 18:17 Dose: 500 mls/hr Documented by: [id number] Sodium Chloride (Sodium Chloride 0.9% 10 Ml Syringe) 10 ml FLUSH ASDIRECTED PRN PRN Reason: Keep Vein Open Last Admin: 05/17/21 18:17 Dose: 10 ml Documented by: [id number] Sodium Chloride (Sodium Chloride 0.9% 2.5 Ml Syringe) 2.5 ml FLUSH ASDIRECTED PRN PRN Reason: Keep Vein Open Last Admin: 05/17/21 18:17 Dose: 2.5 ml Documented by: [id number] Labs: Laboratory Tests 05/17/21 05/17/21 05/17/21 Range/Units 18:26 18:28 18:28 WBC 7.84 (4.0-11.0) K/uL RBC 4.73 (4.30-5.90) M/uL Hgb 10.9 L (12.0-16.0) g/dL Hct 35.7 L (36.0-46.0) % MCV 75.5 L (80.0-98.0) fL MCH 23.0 L (27.0-32.0) pg MCHC 30.5 L (31.0-37.0) g/dL RDW Std Deviation 46.2 (28.0-62.0) fl RDW Coeff of Lam 17 H (11.0-15.0) % Plt Count 386 (150-400) K/uL MPV 9.40 (7.40-12.00) fL Neut % (Auto) 61.2 (48.0-80.0) % Lymph % (Auto) 32.9 (16.0-40.0) % [place] % (Auto) 5.5 (0.0-15.0) % Eos % (Auto) 0.0 (0.0-7.0) % Baso % (Auto) 0.4 (0.0-1.5) % Neut # (Auto) 4.8 (1.4-5.7) K/uL Lymph # (Auto) 2.6 H (0.6-2.4) K/uL [place] # (Auto) 0.4 (0.0-0.8) K/uL Eos # (Auto) 0.0 (0.0-0.7) K/uL Baso # (Auto) 0.0 (0.0-0.1) K/uL Nucleated RBC % 0.0 /100WBC Nucleated RBCs # 0 K/uL Sodium 142 (136-145) mmol/L Potassium 3.7 (3.5-5.1) mmol/L Chloride 105 (98-107) mmol/L Carbon Dioxide 28.9 (21.0-32.0) mmol/L BUN 11 (7.0-18.0) mg/dL Creatinine 0.7 (0.6-1.0) mg/dL Est Cr Clr Drug Dosing 130.54 mL/min Estimated GFR (MDRD) > 60.0 ml/min Glucose 80 (74-106) mg/dL Calcium 8.3 L (8.5-10.1) mg/dL Total Bilirubin 0.9 (0.2-1.0) mg/dL AST 9 L (15-37) IU/L ALT 15 (14-63) IU/L Alkaline Phosphatase 101 (46-116) U/L Total Protein 7.1 (6.4-8.2) g/dL Albumin 3.3 L (3.4-5.0) g/dL Globulin 3.8 (2.6-4.0) g/dL Albumin/Globulin Ratio 0.9 (0.9-1.6) Lipase 51 L (73-393) U/L HCG, Qual (NEG) Urine Color Urine Appearance Urine pH (5.0-8.0) Ur Specific [place] (1.001-1.035) Urine Protein (NEGATIVE) mg/dL Urine Glucose (UA) (NEGATIVE) mg/dL Urine Ketones (NEGATIVE) mg/dL Urine Occult Blood (NEGATIVE) Urine Nitrite (NEGATIVE) Urine Bilirubin (NEGATIVE) Urine Urobilinogen (<2.0) EU/dL Ur Leukocyte Esterase (NEGATIVE) Urine RBC (0-2/HPF) Urine WBC (0-5/HPF) Ur Epithelial Cells (NONE-FEW) Urine Bacteria (NEGATIVE) Influenza Type A RNA NEGATIVE (NEGATIVE) Influenza Type B RNA NEGATIVE (NEGATIVE) SARS-CoV-2 RNA (MILAGRO) NEGATIVE (NEGATIVE) 05/17/21 05/17/21 Range/Units 18:28 19:20 WBC (4.0-11.0) K/uL RBC (4.30-5.90) M/uL Hgb (12.0-16.0) g/dL Hct (36.0-46.0) % MCV (80.0-98.0) fL MCH (27.0-32.0) pg MCHC (31.0-37.0) g/dL RDW Std Deviation (28.0-62.0) fl RDW Coeff of Lam (11.0-15.0) % Plt Count (150-400) K/uL MPV (7.40-12.00) fL Neut % (Auto) (48.0-80.0) % Lymph % (Auto) (16.0-40.0) % [place] % (Auto) (0.0-15.0) % Eos % (Auto) (0.0-7.0) % Baso % (Auto) (0.0-1.5) % Neut # (Auto) (1.4-5.7) K/uL Lymph # (Auto) (0.6-2.4) K/uL [place] # (Auto) (0.0-0.8) K/uL Eos # (Auto) (0.0-0.7) K/uL Baso # (Auto) (0.0-0.1) K/uL Nucleated RBC % /100WBC Nucleated RBCs # K/uL Sodium (136-145) mmol/L Potassium (3.5-5.1) mmol/L Chloride (98-107) mmol/L Carbon Dioxide (21.0-32.0) mmol/L BUN (7.0-18.0) mg/dL Creatinine (0.6-1.0) mg/dL Est Cr Clr Drug Dosing mL/min Estimated GFR (MDRD) ml/min Glucose (74-106) mg/dL Calcium (8.5-10.1) mg/dL Total Bilirubin (0.2-1.0) mg/dL AST (15-37) IU/L ALT (14-63) IU/L Alkaline Phosphatase (46-116) U/L Total Protein (6.4-8.2) g/dL Albumin (3.4-5.0) g/dL Globulin (2.6-4.0) g/dL Albumin/Globulin Ratio (0.9-1.6) Lipase (73-393) U/L HCG, Qual NEGATIVE (NEG) Urine Color YELLOW Urine Appearance CLOUDY Urine pH 7.0 (5.0-8.0) Ur Specific [place] 1.025 (1.001-1.035) Urine Protein NEGATIVE (NEGATIVE) mg/dL Urine Glucose (UA) NEGATIVE (NEGATIVE) mg/dL Urine Ketones TRACE H (NEGATIVE) mg/dL Urine Occult Blood SMALL H (NEGATIVE) Urine Nitrite NEGATIVE (NEGATIVE) Urine Bilirubin NEGATIVE (NEGATIVE) Urine Urobilinogen 0.2 (<2.0) EU/dL Ur Leukocyte Esterase TRACE H (NEGATIVE) Urine RBC 0-1 (0-2/HPF) Urine WBC 0-3 (0-5/HPF) Ur Epithelial Cells FEW (NONE-FEW) Urine Bacteria 2+ H (NEGATIVE) Influenza Type A RNA (NEGATIVE) Influenza Type B RNA (NEGATIVE) SARS-CoV-2 RNA (MILAGRO) (NEGATIVE) Meds: Medications Generic Name Dose Route Start Last Admin Trade Name Freq PRN Reason Stop Dose Admin Sodium Chloride 1,000 mls @ 500 mls/hr 05/17/21 18:04 05/17/21 18:17 Normal Saline IV 05/17/21 20:03 500 mls/hr .Bolus ONE Administration Sodium Chloride 10 ml 05/17/21 17:42 05/17/21 18:17 Sodium Chloride 0.9% 10 Ml Syringe FLUSH 10 ml ASDIRECTED PRN Administration Keep Vein Open Sodium Chloride 2.5 ml 05/17/21 17:42 05/17/21 18:17 Sodium Chloride 0.9% 2.5 Ml Syringe FLUSH 2.5 ml ASDIRECTED PRN Administration Keep Vein Open Discontinued Medications Generic Name Dose Route Start Last Admin Trade Name Freq PRN Reason Stop Dose Admin Ketorolac Tromethamine 15 mg 05/17/21 19:09 05/17/21 19:16 Ketorolac 15 Mg/Ml Sdv IVPUSH 05/17/21 19:10 15 mg Q6H STA Administration Meclizine HCl 25 mg 05/17/21 18:00 05/17/21 18:17 Meclizine 25 Mg Tab PO 05/17/21 18:01 25 mg ONETIME ONE Administration Ondansetron HCl 4 mg 05/17/21 18:00 05/17/21 18:17 Ondansetron 4 Mg/2 Ml Sdv IVPUSH 05/17/21 18:01 4 mg ONETIME ONE Administration Departure - Departure Time of Disposition: 19:48 Sepsis Event Note (ED) - Focused Exam Vital Signs: Vital Signs Temp Pulse Resp BP Pulse Ox 05/17/21 19:18 68 18 125/80 97 05/17/21 16:05 98.3 F 77 16 124/61 98
[2021-05-17 18:57] LABS: BLOOD UREA NITROGEN,BUN 11 mg/dL (7.0-18.0); CARBON DIOXIDE,CO2 28.9 mmol/L (21.0-32.0); CHLORIDE,CL 105 mmol/L (98-107); GLUCOSE RANDOM 80 mg/dL (74-106); LIPASE 51 U/L (73-393); POTASSIUM,K 3.7 mmol/L (3.5-5.1); SODIUM,NA 142 mmol/L (136-145)
[2021-05-17] MEDS ORDERED: Ketorolac 15 MG/ML SDV IVPUSH STA (19:09)
[2021-05-17 19:11] LABS: CORONAVIRUS COVID-19 NAA NEGATIVE (NEGATIVE); INFLUENZA A NAA NEGATIVE (NEGATIVE); INFLUENZA B NAA NEGATIVE (NEGATIVE)
== END 2021-05-17 20:03 | disposition home or self-care (01) ==
LOC: MW.ED 14:29
DX: B34.9 Viral infection, unspecified (principal); D64.9 Anemia, unspecified; Z88.0 Allergy status to penicillin; Z79.899 Other long term (current) drug therapy; Z20.822 Contact with and (suspected) exposure to COVID-19
CPT/HCPCS: 0240U; 36415; 80053; 81001; 83690; 84703; 85025; 96374; 96375; 99284; A9270; J1885; J2405; J7030

== ENCOUNTER 2022-04-11 19:23 | Emergency (ER) | payer BC | END 2022-04-11 22:05 | disposition left against medical advice (07) | LOC: MW.ED 19:23 | DX: Z53.21 Procedure and treatment not carried out due to patient leaving prior to being seen by health care provider (principal) ==

== ENCOUNTER 2024-09-22 13:05 | Emergency (ER) | payer BC ==
[2024-09-22] MEDS: Acetaminophen/HYDROcodone 325-5 MG Tab PO ONE (14:03)
[2024-09-22 14:59] LABS: BASOPHILS ABSOLUTE AUTO 0.05 K/uL (0.00-0.20); BASOPHILS PERCENT AUTO 0.4 % (0.0-1.0); EOSINOPHILS ABSOLUTE AUTO 0.06 K/uL (0.00-0.45); EOSINOPHILS PERCENT AUTO 0.5 % (0.0-6.0); HEMATOCRIT 35.9 % (37.0-47.0); HEMOGLOBIN 11.6 g/dL (12.0-16.0); IMMATURE GRAN ABSOLUTE AUTO 0.04 K/uL (0.00-0.05); IMMATURE GRAN PERCENT AUTO 0.3 % (0.0-0.4); LYMPHOCYTES PERCENT AUTO 17.2 % (24.0-44.0); MEAN CORPUSCULAR HEMOGLOBIN 24.6 pg (28.0-32.0); MEAN CORPUSCULAR HGB CONC 32.3 g/dL (32.0-36.0); MEAN CORPUSCULAR VOLUME 76.1 fL (83.0-99.0); MEAN PLATELET VOLUME 9.8 fL (9.4-12.3); MONOCYTES PERCENT AUTO 3.4 % (0.0-8.0); NEUTROPHILS ABSOLUTE AUTO 9.08 K/uL (1.80-7.70); NEUTROPHILS PERCENT AUTO 78.2 % (41.0-71.0); PLATELET COUNT,PLT 364 K/uL (150-400); RED BLOOD CELL COUNT 4.72 M/uL (4.10-5.30); WHITE BLOOD CELL COUNT,WBC 11.63 K/uL (3.9-11.3)
[2024-09-22 15:32] LABS: CANDIDA DNA PROBE NEGATIVE (NEGATIVE); GARDNERELLA DNA PROBE NEGATIVE (NEGATIVE); TRICHOMONAS DNA PROBE NEGATIVE (NEGATIVE)
[2024-09-22 15:42] LABS: C. TRACHOMATIS BY PCR NOT DETECTED; N. GONORRHOEAE BY PCR NOT DETECTED
[2024-09-22 15:50] LABS: APPEARANCE,URINE SLT CLOUDY; BILIRUBIN,URINE NEGATIVE (NEGATIVE); COLOR,URINE YELLOW; GLUCOSE,URINE NEGATIVE (NEGATIVE); KETONES,URINE 40 mg/dL (NEGATIVE); LEUKOCYTE ESTERASE,URINE NEGATIVE (NEGATIVE); NITRITE,URINE NEGATIVE (NEGATIVE); OCCULT BLOOD,URINE NEGATIVE (NEGATIVE); PH,URINE 5.5 (5.0-8.0); PROTEIN,URINE NEGATIVE (NEGATIVE); UROBILINOGEN,URINE 0.2 EU/dL (<2.0)
[2024-09-23 00:15] LABS: A/G RATIO 1.4 (0.9-1.6); ALBUMIN 4.1 g/dL (3.4-5.0); BILIRUBIN TOTAL 1.1 mg/dL (0.2-1.0); CALCIUM 9.3 mg/dL (8.5-10.1); CARBON DIOXIDE,CO2 23.3 mmol/L (21.0-32.0); CREATININE 0.8 mg/dL (0.6-1.0); EST CRCL DRUG DOSING (CG) 95.38 mL/min; POTASSIUM,K 4.5 mmol/L (3.5-5.1); PROTEIN TOTAL,TP 7.1 g/dL (6.4-8.2)
== END 2024-09-22 16:49 | disposition home or self-care (01) ==
LOC: MW.ED 13:05
DX: N83.202 Unspecified ovarian cyst, left side (principal); N83.201 Unspecified ovarian cyst, right side; Z88.5 Allergy status to narcotic agent; Z88.0 Allergy status to penicillin; Z79.899 Other long term (current) drug therapy; Z75.8 Other problems related to medical facilities and other health care
CPT/HCPCS: 36415; 76856; 80053; 81003; 84703; 85025; 87480; 87491; 87510; 87591; 87660; 99284; A9270; 99283